=== PATIENT | female | born 1955 | race African-American/Black ===

== ENCOUNTER 2016-12-17 00:35 | Emergency (ER) | payer MEDICARE, MEDICAID ==
[~2016-12-17] VITALS: Ht 172.7 cm; Wt 96.0 kg
[~2016-12-17 00:35] MED LIST: 1-ME1LIQ OR; CLON0.2T PO; GLIP-146 PO; GLUC10TA3 OR; HYDR10TA23 PO; SYMB80AE INH
[2016-12-17 00:37] VITALS: BP 231/109; PULSE 91; RESP 18; TEMP 98.5; O2SAT 97
[2016-12-17] MEDS ORDERED: GLIP10TA6 PO (01:29)
[2016-12-17] MEDS ORDERED: OMEG100010 (01:29)
[2016-12-17] MEDS ORDERED: LANTUS2P SQ (01:29)
[2016-12-17] MEDS ORDERED: TRAM50TA PO (01:29)
[2016-12-17] MEDS ORDERED: CALC0.25 PO (01:29)
[2016-12-17] MEDS ORDERED: VITA100064 PO (01:29)
[2016-12-17] MEDS ORDERED: HYDR-3799 PO (01:29)
[2016-12-17] MEDS ORDERED: SODI650T PO (01:29)
[2016-12-17] MEDS ORDERED: CLON0.2T PO (01:29)
[2016-12-17] MEDS ORDERED: LORA-567 PO (01:29)
[2016-12-17] MEDS ORDERED: AMLO10TA2 PO (01:29)
[2016-12-17] MEDS ORDERED: ACET250T3 PO (01:29)
[2016-12-17] MEDS ORDERED: ASPI81CH3 CHEW (01:29)
[2016-12-17 01:50] VITALS: BP 195/82; PULSE 89
--- NOTE | 2016-12-17 02:23 | PD ---
HPI Chief Complaint: Hypertension Time Seen by Provider: 00:47 Travel History International Travel<30 days: No Contact w/Intl Traveler<30days: No Traveled to known affect area: No History of Present Illness HPI 51-year-old female arrives because her blood pressure was high at home. It was about 180 / 100. She took clonidine 0.1 mg just prior to arrival. She states she takes hydralazine and amlodipine normally however has been off amlodipine for 2 days. She denies any [id number] medication or different new medication today. Earlier in the evening the patient ate some "soul food." No excessive caffeine. She denies tobacco. Pt has no pain, fever, nausea, dizziness , cp, sob or constitutional complaint otherwise. PFSH Past Medical History Arthritis: Yes Asthma: Yes Autoimmune Disease: No Blood Disorders: No Anxiety: Yes Depression: Yes Heart Rhythm Problems: No Cancer: No Cardiovascular Problems: Yes High Cholesterol: No Chest Pain: No Congestive Heart Failure: No COPD: No Diabetes: Yes Patient Takes Glucophage: Yes (12/16/16) Diminished Hearing: No Endocrine: Yes Glaucoma: Yes Genitourinary: Yes Hypertension: Yes Immune Disorder: No Musculoskeletal: Yes Neurologic: Yes Psychiatric: Yes Reproductive: No Respiratory: Yes Immunizations Current: No Myocardial Infarction: No Sleep Apnea: No Thyroid Disease: No Tetanus Vaccination: < 5 Years Influenza Vaccination: No Menopausal: Yes Past Surgical History Eye Surgery: Yes ("LASER SURGERY" BL EYES.) Other Surgery: No Social History Alcohol Use: Yes (rare) Tobacco Use: No Substance Use: No Allergies-Medications (Allergen,Severity, Reaction): Coded Allergies: Ampicillin (Verified Allergy, Severe, MUSCLE ACHES, 08/01/12) Codeine (Verified Allergy, Severe, RASH, 08/01/12) Reported Meds & Prescriptions Reported Meds & Active Scripts Active Norvasc (Amlodipine Besylate) 10 Mg Tab 10 Mg PO DAILY Reported Vitamin D (Cholecalciferol) 1,000 Unit Tab 1,000 Units PO DAILY Sodium Bicarbonate 650 Mg Tab 650 Mg PO TIDPC [place] 3 1000 mg ([place]-3 Fatty Acids) 1 Cap Cap Loratadine Odt (Loratadine) 10 Mg Tab 10 Mg PO DAILY Hydralazine HCl 25 Mg Tablet 25 Mg PO TID Glipizide 10 Mg Tab 10 Mg PO BIDAC Take 30 minutes before a meal Clonidine (Clonidine HCl) 0.2 Mg Tab 0.2 Mg PO TID Aspirin 81 Low Dose (Aspirin) 81 Mg Chew 81 Mg CHEW DAILY Amlodipine (Amlodipine Besylate) 10 Mg Tab 10 Mg PO DAILY Acetazolamide 250 Mg Tab 250 Mg PO BID Lantus Inj (Insulin Glargine) 1,000 Unit/10 Ml Vial 10 Units SQ HS Calcitriol 0.25 Mcg Cap 0.25 Mcg PO DAILY Tramadol (Tramadol HCl) 50 Mg Tab 50 Mg PO BID PRN Review of Systems Except as stated in HPI: all other systems reviewed are Neg Physical Exam Narrative GENERAL: 61 yo F, WNWD, NAD SKIN: Warm and dry. HEAD: Atraumatic. Normocephalic. EYES: Pupils equal and round. No scleral icterus. No injection or drainage. ENT: No nasal bleeding or discharge. Mucous membranes pink and moist. NECK: Trachea midline. No JVD. CARDIOVASCULAR: Regular rate and rhythm. RESPIRATORY: No accessory muscle use. Clear to auscultation. Breath sounds equal bilaterally. GASTROINTESTINAL: Abdomen soft, non-tender, nondistended. Hepatic and splenic margins not palpable. MUSCULOSKELETAL: Extremities without clubbing, cyanosis, or edema. No obvious deformities. NEUROLOGICAL: Awake and alert. No obvious cranial nerve deficits. Motor grossly within normal limits. Five out of 5 muscle strength in the arms and legs. Normal speech. PSYCHIATRIC: Appropriate mood and affect; insight and judgment normal. Data Data Last Documented VS Vital Signs Date Time Temp Pulse Resp B/P Pulse Ox O2 Delivery O2 Flow Rate FiO2 12/17/16 03:08 88 14 200/88 98 Room Air 12/17/16 00:37 98.5 VS reviewed Orders Amlodipine (Norvasc) (12/17/16 01:45) Hydralazine (Apresoline) (12/17/16 03:30) MDM Medical Decision Making Medical Screen Exam Complete: Yes Emergency Medical Condition: Yes Medical Record Reviewed: Yes Differential Diagnosis Hypertension, medication non-compliance, hypertensive crisis, anxiety Narrative Course Pt received Norvasc and blood pressure decreased to approx 200/80. Hydralazine ordered and blood pressure decreased to approx 180/90. Amlodipine script provided. Pt reassured. All questions answered. Diagnosis Primary Impression: Hypertension Qualified Code: I15.9 - Secondary hypertension Referrals: DR CRAMER 2 days Additional Instructions: You have a choice when it comes to health care, and we are glad that you chose [facility]. Hopefully, we have met your expectations on today's visit. You are welcome to return to [facility] at any time, as we are committed to meeting the health care needs of our community. Med/Other Pt SpecificInfo: Prescription(s) given Scripts Amlodipine (Norvasc)10 Mg Tab10 Mg PO DAILY #30 TAB Ref 0 Prov:Wilton Avendaon MD 12/17/16 Disposition: 01 DISCHARGE HOME Condition: Stable Wilton Avendano MD Dec 17, 2016 02:23
[2016-12-17] MEDS ORDERED: AMLO10 PO (02:39)
[2016-12-17 03:08] VITALS: BP 200/88; PULSE 88; RESP 14; O2SAT 98
[2016-12-17] MEDS ORDERED: hydrALAZINE HCL 50 MG TAB PO ONE (03:30)
[2016-12-17 05:43] VITALS: BP 175/77; PULSE 84; RESP 14; O2SAT 98
[2016-12-17 07:37] VITALS: BP 178/80
== END 2016-12-17 07:38 | disposition home or self-care (01) ==
LOC: NEPC 00:35
DX: I10 Essential (primary) hypertension (principal); J45.909 Unspecified asthma, uncomplicated; E11.9 Type 2 diabetes mellitus without complications; H40.9 Unspecified glaucoma
CPT/HCPCS: 99283